=== PATIENT | male | born 1965 | race Caucasian/White ===

== ENCOUNTER 2019-02-13 17:00 | Inpatient (IN) | payer OTHER ==
--- NOTE | 2019-02-13 17:30 | ER Document Report ---
ED Medical Screen (RME) - General Chief Complaint: Laceration Stated Complaint: HEAD INJURY Time Seen by Provider: 02/13/19 17:18 Primary Care Provider: ALMA DELIA TERRELL MD [Primary Care Provider] - Follow up as needed Notes: 53-year-old male patient comes emergency room after a syncopal episode where he fell and struck his forehead. He has a laceration above the eyebrow on the right forehead. He did go to his doctor about 2 PM today and got an allergy shot. He states he remembers feeling nauseous and feeling like his heart was fluttering, he then put his head down on his desk, and he woke up on the floor with the injury. He does report having similar episode of heart fluttering and nauseous feeling about 2 weeks ago, but then it went away. I have greeted and performed a rapid initial assessment of this patient. A comprehensive ED assessment and evaluation of the patient, analysis of test results and completion of the medical decision making process will be conducted by additional ED providers. - Related Data Allergies/Adverse Reactions: No Known Allergies Allergy (Unverified 02/13/19 17:02) Past Medical History - Social History Chew tobacco use (# tins/day): No Drug Abuse: None - Past Medical History Cardiac Medical History: Reports: Hx Hypertension Renal/ Medical History: Denies: Hx Peritoneal Dialysis Past Surgical History: Reports: Hx Orthopedic Surgery - back and jaw Physical Exam - Vital signs Vitals: Temp Pulse Resp BP Pulse Ox 97.9 F 87 16 165/82 H 100 02/13/19 17:06 02/13/19 17:06 02/13/19 17:06 02/13/19 17:06 02/13/19 17:06 Course - Vital Signs Vital signs: Temp Pulse Resp BP Pulse Ox 97.9 F 87 16 165/82 H 100 02/13/19 17:06 02/13/19 17:06 02/13/19 17:06 02/13/19 17:06 02/13/19 17:06 Doctor's Discharge - Discharge Referrals: ALMA DELIA TERRELL MD [Primary Care Provider] - Follow up as needed
[2019-02-13] MEDS ORDERED: DIPH/PERTUSS(ACELL)/TETANUS VAC/PF 0.5 ML SYR (>=10YO) IM ONE (17:35)
[2019-02-13 18:06] LABS: ABSOLUTE EOSINOPHILS # (AUTO) 0.1 10^3/uL (0.0-0.6); ABSOLUTE LYMPHOCYTES (AUTO) 1.4 10^3/uL (0.5-4.7); ABSOLUTE MONOCYTES (AUTO) 0.5 10^3/uL (0.1-1.4); ABSOLUTE NEUT (AUTO) 6.1 10^3/uL (1.7-8.2); BASOPHILS % (AUTO) 0.6 % (0-2); EOSINOPHILS % (AUTO) 1.3 % (0-6); HEMATOCRIT 43.8 % (37.9-51.0); HEMOGLOBIN 15.2 g/dL (13.5-17.0); LYMPHOCYTES % (AUTO) 16.8 % (13-45); MEAN CORPUSCULAR HGB CONC 34.7 g/dL (32.0-36.0); MEAN CORPUSCULAR VOLUME 86 fl (80-97); MONOCYTES % (AUTO) 6.1 % (3-13); PLATELET COUNT 320 10^3/uL (150-450); RED BLOOD COUNT 5.06 10^6/uL (4.35-5.55); RED CELL DISTRIBUTION WIDTH 13.7 % (11.5-14.0); SEGMENTED NEUTROPHILS % (AUTO) 75.2 % (42-78); TOTAL CELLS COUNTED % (AUTO) 100 %; WHITE BLOOD COUNT 8.2 10^3/uL (4.0-10.5)
[2019-02-13 18:26] LABS: ALANINE AMINOTRANSFERASE 76 U/L (21-72); ALBUMIN 4.9 g/dL (3.5-5.0); ALKALINE PHOSPHATASE 88 U/L (38-126); ANION GAP 11 (5-19); ASPARTATE AMINO TRANSFERASE 47 U/L (17-59); BILIRUBIN,DIRECT 0.3 mg/dL (0.0-0.4); BILIRUBIN,TOTAL 1.2 mg/dL (0.2-1.3); BLOOD UREA NITROGEN 20 mg/dL (7-20); CALCIUM 10.2 mg/dL (8.4-10.2); CARBON DIOXIDE 29 mmol/L (22-30); CHLORIDE 100 mmol/L (98-107); CREATINE KINASE 83 U/L (55-170); GLUCOSE 112 mg/dL (75-110); POTASSIUM 4.3 mmol/L (3.6-5.0); TOTAL PROTEIN 8.4 g/dL (6.3-8.2)
--- NOTE | 2019-02-13 18:32 | RADIOLOGY REPORT (SQ) ---
EXAM DESCRIPTION: CT HEAD WITHOUT COMPLETED DATE/TIME: 02/13/2019 6:26 pm REASON FOR STUDY: Syncope, fall, hit head COMPARISON: None. TECHNIQUE: Axial images acquired through the brain without intravenous contrast. Images reviewed wi th bone, brain and subdural windows. Additional sagittal and coronal reconstructions were generated. Images stored on PACS. All CT scanners at this facility use dose modulation, iterative reconstruction, and/or weight based d osing when appropriate to reduce radiation dose to as low as reasonably achievable (ALARA). [facility]: Dose Right [facility]: CareDose [facility]: Dose Right [facility]: Teradose 4D [facility]: [employer] Technologies RADIATION DOSE: CT Rad equipment meets quality standard of care and radiation dose reduction techniq ues were employed. CTDIvol: 53.2 mGy. DLP: 1044 mGy-cm. mGy. LIMITATIONS: None. FINDINGS: VENTRICLES: Normal size and contour. CEREBRUM: No masses. No hemorrhage. No midline shift. No evidence for acute infarction. Normal gra y/white matter differentiation. No areas of low density in the white matter. CEREBELLUM: No masses. No hemorrhage. No alteration of density. No evidence for acute infarction. EXTRAAXIAL SPACES: No fluid collections. No masses. ORBITS AND GLOBE: No intra- or extraconal masses. Normal contour of globe without masses. CALVARIUM: No fracture. PARANASAL SINUSES: Small air-fluid level in the right maxillary sinus. SOFT TISSUES: No mass or hematoma. OTHER: No other significant finding. IMPRESSION: 1. No acute intracranial pathology. 2. Small air-fluid level in the right maxillary sinus. Correlate for evidence of acute trauma or al ternately sinusitis. EVIDENCE OF ACUTE STROKE: NO. COMMENT: Quality ID # [id number]: Final reports with documentation of one or more dose reduction techniques (e.g., Automated exposure control, adjustment of the mA and/or kV according to patient size, use of iterative reconstruction technique) TECHNICAL DOCUMENTATION: JOB ID: [id number] [employer]- All Rights Reserved Reading location - IP/workstation name: [email or web address]
--- NOTE | 2019-02-13 18:36 | RADIOLOGY REPORT (SQ) ---
EXAM DESCRIPTION: CHEST 2 VIEWS COMPLETED DATE/TIME: 02/13/2019 6:26 pm REASON FOR STUDY: syncope COMPARISON: None. EXAM PARAMETERS: NUMBER OF VIEWS: two views TECHNIQUE: Digital Frontal and Lateral radiographic views of the chest acquired. RADIATION DOSE: NA LIMITATIONS: none FINDINGS: LUNGS AND PLEURA: No opacities, masses or pneumothorax. No pleural effusion. MEDIASTINUM AND HILAR STRUCTURES: No masses or contour abnormalities. HEART AND VASCULAR STRUCTURES: Cardiomegaly. BONES: No acute findings. HARDWARE: None in the chest. OTHER: No other significant finding. IMPRESSION: Cardiomegaly without acute abnormality of the lungs. TECHNICAL DOCUMENTATION: JOB ID: [id number] [email or web address]- All Rights Reserved Reading location - IP/workstation name: [email or web address]
[2019-02-13 18:38] LABS: CREATINE KINASE MB 0.61 ng/mL (<4.55); TROPONIN I < 0.012 ng/mL
[2019-02-13] MEDS ORDERED: LIDOCAINE 1%/EPINEPHRINE INJ 20 ML VIAL INJ ONE (18:44)
[2019-02-13 18:57] LABS: FREE T3 5.15 pg/mL (2.77-5.27); FREE T4 (FREE THYROXINE) 1.1 ng/dL (0.78-2.19)
[2019-02-13 19:08] LABS: APPEARANCE,URINE CLEAR; BILIRUBIN,URINE NEGATIVE (NEGATIVE); COLOR,URINE YELLOW; GLUCOSE, URINE NEGATIVE (NEGATIVE); KETONES,URINE 20 mg/dL (NEGATIVE); LEUKOCYTE ESTERASE,URINE NEGATIVE (NEGATIVE); NITRITE,URINE NEGATIVE (NEGATIVE); PROTEIN,URINE NEGATIVE (NEGATIVE); URINE SPECIFIC GRAVITY 1.017; UROBILINOGEN,URINE NEGATIVE mg/dL (<2.0)
[2019-02-13 19:10] LABS: THYROID STIMULATING HORMONE 3.88 uIU/mL (0.47-4.68)
--- NOTE | 2019-02-13 19:49 | ER Document Report ---
ED Syncope and Near Syncope - General Chief Complaint: Laceration Stated Complaint: HEAD INJURY Time Seen by Provider: 02/13/19 17:18 Primary Care Provider: ALMA DELIA TERRELL MD [Primary Care Provider] - Follow up as needed Mode of Arrival: Ambulatory Information source: Patient Notes: Patient states that about 2 weeks ago he had an episode in which he felt hot and sweaty with nausea and the symptoms resolved. Patient states that today around 415 he got lightheaded felt a fluttering in his chest was nauseated and then woke up on the floor with a laceration. Patient presently denies any complaints at this time. Patient denies any lightheaded sensation or help rotations in his chest. Patient denies any history other than hypertension. - HPI Patient complains to provider of: Fainting Episode witnessed (by whom): No Symptoms prior to episode: Lightheaded, Nausea/vomiting, Palpitations. No: Chest pain Position/Activity at time of episode: Sitting Quality of pain: No pain Pain Level: Denies Context: Lost consciousness. denies: Recent travel Injury location: Head Current symptoms: Lightheaded, Nausea. denies: Arm pain, Chest pain, Neck pain, Vomiting Similar symptoms previously: Yes Recently seen / treated by doctor: Yes - Saw her primary doctor earlier today and received a cortisone injection - Related Data Allergies/Adverse Reactions: No Known Allergies Allergy (Verified 02/13/19 18:14) Past Medical History - General Information source: Patient - Social History Smoking Status: Never Smoker Chew tobacco use (# tins/day): No Frequency of alcohol use: None Drug Abuse: None Occupation: Educator Lives with: Family Family History: Reviewed & Not Pertinent Patient has suicidal ideation: No Patient has homicidal ideation: No - Past Medical History Cardiac Medical History: Reports: Hx Hypertension Renal/ Medical History: Denies: Hx Peritoneal Dialysis Past Surgical History: Reports: Hx Orthopedic Surgery - back and jaw Review of Systems - Review of Systems Constitutional: No symptoms reported. denies: Fever, Recent illness EENT: No symptoms reported Cardiovascular: Palpitations, Syncope, Lightheaded. denies: Chest pain Respiratory: No symptoms reported. denies: Cough, Short of breath Gastrointestinal: Nausea. denies: Vomiting Genitourinary: No symptoms reported Male Genitourinary: No symptoms reported Musculoskeletal: No symptoms reported. denies: Back pain Skin: Other - Laceration to brow Hematologic/Lymphatic: No symptoms reported Neurological/Psychological: No symptoms reported. denies: Headaches Physical Exam - Vital signs Vitals: Temp Pulse Resp BP Pulse Ox 97.9 F 87 16 165/82 H 100 02/13/19 17:06 02/13/19 17:06 02/13/19 17:06 02/13/19 17:06 02/13/19 17:06 - General General appearance: Appears well, Alert In distress: None - HEENT Head: Tenderness - Laceration to the right brow area. No: Abrasions, [place]'s eyes Eyes: Normal Extraocular movements intact: Yes Eyelashes: Normal Pupils: PERRL Ears: Normal External canal: Normal Nasal: Normal Mouth/Lips: Normal Pharynx: Normal. No: Erythema, Exudate Neck: Normal, Lymphadenopathy, Supple - Respiratory Respiratory status: No respiratory distress Chest status: Nontender Breath sounds: Normal Chest palpation: Normal - Cardiovascular Rhythm: Regular Heart sounds: S1 appreciated, S2 appreciated Murmur: No - Abdominal Inspection: Normal Distension: No distension Bowel sounds: Normal Tenderness: Nontender Organomegaly: No organomegaly - Back Back: Normal, Nontender. No: CVA tenderness - Extremities General upper extremity: Normal inspection, Normal ROM General lower extremity: Normal inspection, Normal ROM. No: Edema - Neurological Neuro grossly intact: Yes Cognition: Normal [place] Coma Scale Eye Opening: Spontaneous [place] Coma Scale Verbal: Oriented [place] Coma Scale Motor: Obeys Commands [place] Coma Scale Total: 15 - Psychological Associated symptoms: Normal affect, Normal mood - Skin Skin Temperature: Warm Skin Moisture: Dry Skin irregularity: Laceration - 2 cm laceration to the right brow area Course - Re-evaluation Re-evalutation: 02/13/19 19:59 Patient denies any chest pain symptoms or palpitations symptoms at this time. Patient's heart rate in a sinus rhythm at this time. Consulted with Dr. Gibbons who does recommend consultation with hospitalist for admission for further evaluation. Patient denies any headache, neck or back tenderness at this time. 02/13/19 20:[address] Castro who agrees to accept patient for admission to the IMCU unit. - Vital Signs Vital signs: Temp Pulse Resp BP Pulse Ox 97.9 F 87 20 159/94 H 95 02/13/19 17:06 02/13/19 17:06 02/13/19 19:01 02/13/19 19:01 02/13/19 19:01 - Laboratory Result Diagrams: 02/13/19 17:48 02/13/19 17:48 Laboratory results interpreted by me: 02/13/19 02/13/19 17:48 17:48 Glucose 112 H ALT 76 H Total Protein 8.4 H Urine Ketones 20 H Urine Ascorbic Acid 40 H 02/13/19 19:48 Labs- Entire Visit 02/13/19 02/13/19 02/13/19 17:48 17:48 17:48 WBC 8.2 RBC 5.06 Hgb 15.2 Hct 43.8 MCV 86 MCH 30.0 MCHC 34.7 RDW 13.7 Plt Count 320 Seg Neutrophils % 75.2 Lymphocytes % 16.8 Monocytes % 6.1 Eosinophils % 1.3 Basophils % 0.6 Absolute Neutrophils 6.1 Absolute Lymphocytes 1.4 Absolute Monocytes 0.5 Absolute Eosinophils 0.1 Absolute Basophils 0.0 Sodium 140.0 Potassium 4.3 Chloride 100 Carbon Dioxide 29 Anion Gap 11 BUN 20 Creatinine 0.87 Est GFR ( Amer) > 60 Est GFR (Non-Af Amer) > 60 Glucose 112 H Calcium 10.2 Magnesium Total Bilirubin 1.2 Direct Bilirubin 0.3 Neonat Total Bilirubin Not Reportable Neonat Direct Bilirubin Not Reportable Neonat Indirect Bili Not Reportable AST 47 ALT 76 H Alkaline Phosphatase 88 Creatine Kinase 83 CK-MB (CK-2) 0.61 Troponin I < 0.012 Total Protein 8.4 H Albumin 4.9 TSH Free T4 Free T3 pg/mL Urine Color Urine Appearance Urine pH Ur Specific [place] Urine Protein Urine Glucose (UA) Urine Ketones Urine Blood Urine Nitrite Urine Bilirubin Urine Urobilinogen Ur Leukocyte Esterase Urine RBC (Auto) Squamous Epi Cells Auto Urine Mucus (Auto) Urine Ascorbic Acid 02/13/19 02/13/19 02/13/19 17:48 17:48 17:48 WBC RBC Hgb Hct MCV MCH MCHC RDW Plt Count Seg Neutrophils % Lymphocytes % Monocytes % Eosinophils % Basophils % Absolute Neutrophils Absolute Lymphocytes Absolute Monocytes Absolute Eosinophils Absolute Basophils Sodium Potassium Chloride Carbon Dioxide Anion Gap BUN Creatinine Est GFR ( Amer) Est GFR (Non-Af Amer) Glucose Calcium Magnesium 2.1 Total Bilirubin Direct Bilirubin Neonat Total Bilirubin Neonat Direct Bilirubin Neonat Indirect Bili AST ALT Alkaline Phosphatase Creatine Kinase CK-MB (CK-2) Troponin I Total Protein Albumin TSH 3.88 Free T4 1.10 Free T3 pg/mL 5.15 Urine Color YELLOW Urine Appearance CLEAR Urine pH 6.0 Ur Specific [place] 1.017 Urine Protein NEGATIVE Urine Glucose (UA) NEGATIVE Urine Ketones 20 H Urine Blood NEGATIVE Urine Nitrite NEGATIVE Urine Bilirubin NEGATIVE Urine Urobilinogen NEGATIVE Ur Leukocyte Esterase NEGATIVE Urine RBC (Auto) 4 Squamous Epi Cells Auto <1 Urine Mucus (Auto) RARE Urine Ascorbic Acid 40 H - Diagnostic Test Radiology reviewed: Reports reviewed - EKG Interpretation by Me Rhythm: A.Fib - With some appearance of flutter waves in lead I and II Additional EKG results interpreted by me: 02/13/19 20:09 Repeat EKG sinus rhythm, no ST wave elevation, QTc 416 Procedures - Laceration/Wound Repair Right Face Wound length (cm): 2 Wound's Depth, Shape: Linear Laceration pre-procedure: Shur-Clens applied Anesthetic type: 1% Lidocaine w/epi Wound explored: Clean, No foreign body removed Wound Repaired With: Sutures Suture Size/Type: 6:0, Nylon Number of Sutures: 5 Layer Closure?: No Post-procedure NV exam normal: Yes Complications: No Adult Head Front/Back picture: 1 - 2 cm lac Discharge - Discharge Clinical Impression: Syncope Qualifiers: Syncope type: unspecified Qualified Code(s): R55 - Syncope and collapse Facial laceration Qualifiers: Encounter type: initial encounter Qualified Code(s): S01.81XA - Laceration without foreign body of other part of head, initial encounter Condition: Stable Disposition: ADMITTED INPATIENT Admitting Provider: Hospitalist Unit Admitted: IMCU Referrals: ALMA DELIA TERRELL MD [Primary Care Provider] - Follow up as needed
[2019-02-13] MEDS ORDERED: MAG HYDROX/AL HYDROX/SIMETH SUSP 30 ML UDCUP PO PRN (21:07)
[2019-02-13] MEDS ORDERED: TEMAZEPAM 15 MG CAPSULE PO PRN (21:07)
[2019-02-13] MEDS ORDERED: ONDANSETRON HCL INJ/PF 4 MG/2 ML SDV IV PRN (21:07)
[2019-02-13] MEDS ORDERED: MAGNESIUM HYDROXIDE SUSP 30 ML UDCUP PO PRN (21:07)
[2019-02-13] MEDS ORDERED: ACETAMINOPHEN 325 MG TABLET PO PRN (21:15)
[2019-02-13] MEDS ORDERED: NALBUPHINE HCL INJ 10 MG/1 ML AMPULE IV PRN (21:15)
--- NOTE | 2019-02-13 22:56 | RADIOLOGY REPORT (SQ) ---
EXAM DESCRIPTION: MR BRAIN ANGIOGRAPHY WITHOUT IV CONTRAST COMPLETED DATE/TME: 02/13/2019 00:00 CLINICAL HISTORY: 53 years, Male, Syncopal epsiode COMPARISON: CT brain 02/13/2019 TECHNIQUE: 364 Images stored on PACS. LIMITATIONS: None. FINDINGS: The vertebral basilar system is unremarkable. Negative for basilar tip aneurysm. The petrous and remaining intracranial portions of the internal carotid arteries are widely patent. The [place] is intact and unremarkable. No MRA evidence for focal stenosis, vascular encasement, or displacement. No MR evidence for aneurysm or arteriovenous malformation. IMPRESSION: Unremarkable MRA brain copyright 2010 [employer]- All Rights Reserved
--- NOTE | 2019-02-13 23:01 | RADIOLOGY REPORT (SQ) ---
EXAM DESCRIPTION: MR BRAIN WITHOUT IV CONTRAST COMPLETED DATE/TME: 02/13/2019 00:00 CLINICAL HISTORY: 53 years, Male, Syncopal epsiode COMPARISON: CT from today's date TECHNIQUE: 283 Images stored on PACS. LIMITATIONS: None. FINDINGS: Sagittal midline anatomic structures show an unremarkable appearance to the pituitary and suprasellar regions. The globes are intact. The costal thickening of the ethmoid air cells. Air-fluid level with polyps of the right maxillary sinus. Normal flow void in visualized intracranial vessels. The visualized cranial nerve complex these are unremarkable. There is no intra or extra-axial hemorrhage. Diffusion-weighted images are normal without evidence for acute infarct. No evidence for mass or midline shift. The dum[place]-white matter differentiation is preserved. Ventricles are symmetric. IMPRESSION: Negative for acute intracranial abnormality. Right maxillary sinusitis copyright 2010 [employer]- All Rights Reserved
[2019-02-13 23:04] LABS: CREATINE KINASE MB 0.5 ng/mL (<4.55); TROPONIN I 0.013 ng/mL
[2019-02-13] MEDS: HEPARIN SOD (PORCINE) 5,000 UNIT/ML 1 ML SYRINGE SUBCUT SCH (23:12)
[2019-02-13] MEDS: FAMOTIDINE 20 MG TABLET PO SCH (23:12)
--- NOTE | 2019-02-13 23:18 | EKG REPORT ---
SEVERITY:- BORDERLINE ECG - SINUS RHYTHM PROBABLE LEFT ATRIAL ABNORMALITY : Confirmed by: Felix Cornelius 13-Feb-2019 23:18:04
--- NOTE | 2019-02-13 23:19 | EKG REPORT ---
SEVERITY:- ABNORMAL ECG - SINUS RHYTHM, BASELINE ARTIFACTS PREVENTS ACCURATE INTERP. REC REPET EKG : Confirmed by: Felix Cornleius 13-Feb-2019 23:19:11
--- NOTE | 2019-02-14 01:47 | PDOC H&P ---
History of Present Illness Admission Date/PCP: 02/13/19 20:24 ALMA DELIA TERRELL Patient complains of: Syncopal episode History of Present Illness: GARRETT AGUIAR is a 53 year old male who presented to the emergency room with an acute episode of syncope. 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 He remembers the events just prior to the episode of unconsciousness and also angelika mbers the events immediately following the period of unconsciousness when he woke up noticing blood on the floor in front of his face. He denies other accompanying signs or symptoms and rates his syncopal episode as severe. He admits that he had a single similar less severe prior episode approximately 2 weeks ago but did not have syncope at that time. He has not identified any aggravating or ameliorating factors for his syncopal episodes. In the emergency room he was found to have a right periorbital contusion with laceration which was repaired. His CAT scan was negative for intracranial injury or hemorrhage. His initial cardiac workup showed negative cardiac enzymes and an EKG which s howed no evidence of cardiac ischemia or injury. He was subsequently admitted to the hospital for further evaluation and treatment. Past Medical History Cardiac Medical History: Reports: Hypertension Denies: Atrial Fibrillation, Coronary Artery Disease, Hyperlipidema Pulmonary Medical History: Denies: Asthma, Chronic Obstructive Pulmonary Disease (COPD) EENT Medical History: Denies: Cataracts, Nose - Nasal polyps Neurological Medical History: Denies: Hemorrhagic CVA, Ischemic CVA, Multiple Sclerosis, Seizures Endocrine Medical History: Denies: Diabetes Mellitus Type 1, Diabetes Mellitus Type 2, Hyperthyroidism, Hypothyroidism Renal/ Medical History: Denies: Chronic Kidney Disease, Nephrolithiasis Malignancy Medical History: Reports: None GI Medical History: Denies: Cirrhosis, Hepatitis Musculoskeltal Medical History: Denies: Arthritis, Gout Skin Medical History: Denies: Eczema, Psoriasis Psychiatric Medical History: Denies: Alcohol Dependency, Substance Abuse, Tobacco Dependency Traumatic Medical History: Reports: None Hematology: Denies: Anemia, Bleeding Tendencies Infectious Medical History: Reports: None Past Surgical History Past Surgical History: Reports: Orthopedic Surgery - back and jaw Social History Information Source: Patient Lives with: Family Smoking Status: Never Smoker Frequency of Alcohol Use: Rare Hx Recreational Drug Use: No Drugs: None Hx Prescription Drug Abuse: No - Advance Directive Resuscitation Status: Full Code Surrogate healthcare decision maker:: Spouse Family History Family History: Hypertension, Malignancy. denies: CAD, DM Parental Family History Reviewed: Yes Children Family History Reviewed: No Sibling(s) Family History Reviewed.: Yes Medication/Allergy Home Medications: Amlodipine Besylate [Norvasc 5 mg Tablet] 5 mg PO DAILY 02/13/19 Fluticasone Furoate [Arnuity Ellipta] 50 mcg NASL DAILY 02/13/19 Furosemide [Lasix 40 mg Tablet] 40 mg PO DAILY 02/13/19 Ramipril [Altace 10 mg Capsule] 10 mg PO DAILY 02/13/19 Allergies/Adverse Reactions: No Known Allergies Allergy (Verified 02/13/19 18:14) Review of Systems Constitutional: PRESENT: as per HPI, headache(s) - Right frontal headache since injury, other - Diaphoresis. ABSENT: chills, fever(s) Eyes: ABSENT: visual disturbances, other - Ocular pain Ears: ABSENT: hearing changes, other - Ear pain Nose, Mouth, and Throat: ABSENT: mouth pain, sore throat Cardiovascular: PRESENT: as per HPI, palpitations, other - Syncopal episode. ABSENT: chest pain, dyspnea on exertion, edema, orthropnea Respiratory: ABSENT: cough, dyspnea Gastrointestinal: PRESENT: as per HPI, nausea. ABSENT: abdominal pain, constipation, diarrhea, vomiting Genitourinary: ABSENT: dysuria, hematuria Musculoskeletal: PRESENT: back pain - Mild chronic back pain since surgery. ABSENT: joint swelling, muscle weakness Integumentary: ABSENT: pruritus, rash Neurological: ABSENT: confusion, convulsions, focal weakness, memory loss Psychiatric: ABSENT: anxiety, depression Endocrine: ABSENT: cold intolerance, heat intolerance Hematologic/Lymphatic: ABSENT: easy bleeding, easy bruising Physical Exam Vital Signs: Temp Pulse Resp BP Pulse Ox 97.9 F 87 11 L 164/97 H 96 02/13/19 17:06 02/13/19 17:06 02/13/19 20:01 02/13/19 20:01 02/13/19 20:01 Intake & Output 02/11/19 02/12/19 02/13/19 23:59 23:59 23:59 Weight 100 kg General appearance: PRESENT: no acute distress, cooperative, obese Head exam: PRESENT: atraumatic, normocephalic Eye exam: PRESENT: conjunctiva pink. ABSENT: scleral icterus Ear exam: PRESENT: normal external ear exam. ABSENT: bleeding, drainage Mouth exam: PRESENT: dry mucosa, neck supple Neck exam: ABSENT: JVD, thyromegaly, tracheal deviation Respiratory exam: PRESENT: clear to auscultation deandre, symmetrical, unlabored Cardiovascular exam: PRESENT: RRR. ABSENT: clicks, gallop, rubs Pulses: PRESENT: normal radial pulses, normal dorsalis pedis pul Vascular exam: PRESENT: normal capillary refill. ABSENT: pallor GI/Abdominal exam: PRESENT: normal bowel sounds, soft Rectal exam: PRESENT: deferred Extremities exam: ABSENT: joint swelling, pedal edema Musculoskeletal exam: PRESENT: full ROM, normal inspection Neurological exam: PRESENT: alert, awake, oriented to person, oriented to place, oriented to time, oriented to situation, CN II-XII grossly intact. ABSENT: motor sensory deficit Psychiatric exam: PRESENT: appropriate affect, normal mood Skin exam: PRESENT: dry, intact, warm. ABSENT: jaundice, rash, urticaria Results Laboratory Results: 02/13/19 17:48 02/13/19 17:48 02/13/19 02/13/19 02/13/19 17:48 17:48 17:48 WBC 8.2 RBC 5.06 Hgb 15.2 Hct 43.8 MCV 86 MCH 30.0 MCHC 34.7 RDW 13.7 Plt Count 320 Seg Neutrophils % 75.2 Lymphocytes % 16.8 Monocytes % 6.1 Eosinophils % 1.3 Basophils % 0.6 Absolute Neutrophils 6.1 Absolute Lymphocytes 1.4 Absolute Monocytes 0.5 Absolute Eosinophils 0.1 Absolute Basophils 0.0 Sodium 140.0 Potassium 4.3 Chloride 100 Carbon Dioxide 29 Anion Gap 11 BUN 20 Creatinine 0.87 Est GFR ( Amer) > 60 Est GFR (Non-Af Amer) > 60 Glucose 112 H Calcium 10.2 Magnesium 2.1 Total Bilirubin 1.2 AST 47 ALT 76 H Alkaline Phosphatase 88 Total Protein 8.4 H Albumin 4.9 TSH Free T4 Free T3 pg/mL Urine Color Urine Appearance Urine pH Ur Specific [place] Urine Protein Urine Glucose (UA) Urine Ketones Urine Blood Urine Nitrite Ur Leukocyte Esterase Urine RBC (Auto) 02/13/19 02/13/19 17:48 17:48 WBC RBC Hgb Hct MCV MCH MCHC RDW Plt Count Seg Neutrophils % Lymphocytes % Monocytes % Eosinophils % Basophils % Absolute Neutrophils Absolute Lymphocytes Absolute Monocytes Absolute Eosinophils Absolute Basophils Sodium Potassium Chloride Carbon Dioxide Anion Gap BUN Creatinine Est GFR ( Amer) Est GFR (Non-Af Amer) Glucose Calcium Magnesium Total Bilirubin AST ALT Alkaline Phosphatase Total Protein Albumin TSH 3.88 Free T4 1.10 Free T3 pg/mL 5.15 Urine Color YELLOW Urine Appearance CLEAR Urine pH 6.0 Ur Specific [place] 1.017 Urine Protein NEGATIVE Urine Glucose (UA) NEGATIVE Urine Ketones 20 H Urine Blood NEGATIVE Urine Nitrite NEGATIVE Ur Leukocyte Esterase NEGATIVE Urine RBC (Auto) 4 02/13/19 02/13/19 17:48 17:48 Creatine Kinase 83 CK-MB (CK-2) 0.61 Troponin I < 0.012 Impressions: Head CT 02/13/19 17:27 IMPRESSION: 1. No acute intracranial pathology. 2. Small air-fluid level in the right maxillary sinus. Correlate for evidence of acute trauma or alternately sinusitis. EVIDENCE OF ACUTE STROKE: NO. Chest X-Ray 02/13/19 18:16 IMPRESSION: Cardiomegaly without acute abnormality of the lungs. Assessment and Plan - Diagnosis (1) Syncope Qualifiers: Syncope type: unspecified Qualified Code(s): R55 - Syncope and collapse Is this a current diagnosis for this admission?: Yes Plan: Patient is admitted for further evaluation will be monitored closely on the telemetry bed. A cardiac consultation will be obtained with Dr. Chaudhari for further evaluation. Additionally patient will have an echocardiogram performed and a MRI of his head as well as an MRA of the head and the neck. Patient has had a broad-spectrum blood chemistry battery obtained to evaluate for thyroid disease and other metabolic causes of syncope. Serial cardiac enzymes and EKGs will be obtained to rule out myocardial infarction or injury as a source of the patient's syncope. Patient's description of his syncopal episode would certainly lend more to the explanation of vasovagal syncope however an arrhythmic etiology cannot be excluded at this point. (2) HTN (hypertension) Qualifiers: Hypertension type: essential hypertension Qualified Code(s): I10 - Essential (primary) hypertension Is this a current diagnosis for this admission?: Yes Plan: Patient will be continued on his current antihypertensive therapy initially however adjustments may be made by Dr. Chaudhari or the daytime hospitalist who will manage the patient prior to discharge. (3) Cardiomegaly Is this a current diagnosis for this admission?: Yes Plan: Patient's cardiomegaly will be evaluated with an echocardiogram. (4) Obesity (BMI 30.0-34.9) Is this a current diagnosis for this admission?: Yes Plan: Patient will be encouraged to adopt a healthy lifestyle utilizing a heart healthy diet to improve his overall life and health. (5) Facial laceration Qualifiers: Encounter type: initial encounter Qualified Code(s): S01.81XA - Laceration without foreign body of other part of head, initial encounter Is this a current diagnosis for this admission?: Yes Plan: Wound care will be delivered as recommended by the emergency room provider who repaired his laceration. The pain associated with the laceration and contusion of his right periorbital region will be treated with Nubain 10 mg IV every 3 hours as needed. Patient is going to have neuro checks performed every 4 hours. - Time Time Spent with patient: 35 or more minutes Medications reviewed and adjusted accordingly: Yes Anticipated discharge: Home - Inpatient Certification Based on my medical assessment, after consideration of the patient's comorbidities, presenting symptoms, or acuity I expect that the services needed warrant INPATIENT care.: Yes I certify that my determination is in accordance with my understanding of Medicare's requirements for reasonable and necessary INPATIENT services [42 CFR 412.3e].: Yes Medical Necessity: Need Close Monitoring Due to Risk of Patient Decompensation, Need For Continuous Telemetry Monitoring, Need for Neurological Checks, Risk of Complication if Not Cared For in Hospital
[2019-02-14 04:26] LABS: APPEARANCE,URINE CLEAR; BILIRUBIN,URINE NEGATIVE (NEGATIVE); COLOR,URINE YELLOW; GLUCOSE, URINE 150 mg/dL (NEGATIVE); KETONES,URINE TRACE mg/dL (NEGATIVE); LEUKOCYTE ESTERASE,URINE NEGATIVE (NEGATIVE); NITRITE,URINE NEGATIVE (NEGATIVE); PROTEIN,URINE NEGATIVE (NEGATIVE); URINE SPECIFIC GRAVITY 1.013; UROBILINOGEN,URINE NEGATIVE mg/dL (<2.0)
[2019-02-14 04:44] LABS: URINE AMPHETAMINES SCREEN NEGATIVE; URINE BARBITURATES SCREEN NEGATIVE; URINE BENZODIAZEPINES SCREEN NEGATIVE; URINE COCAINE SCREEN NEGATIVE; URINE MARIJUANA (THC) SCREEN NEGATIVE; URINE PHENCYCLIDINE SCREEN NEGATIVE
[2019-02-14 04:51] LABS: URINE METHADONE SCREEN NEGATIVE
[2019-02-14] MEDS: HEPARIN SOD (PORCINE) 5,000 UNIT/ML 1 ML SYRINGE SUBCUT SCH ×3 (05:24→21:34)
[2019-02-14 05:25] LABS: HEMATOCRIT 39.5 % (37.9-51.0); HEMOGLOBIN 14.1 g/dL (13.5-17.0); MEAN CORPUSCULAR HEMOGLOBIN 30.5 pg (27.0-33.4); MEAN CORPUSCULAR HGB CONC 35.6 g/dL (32.0-36.0); MEAN CORPUSCULAR VOLUME 86 fl (80-97); PLATELET COUNT 306 10^3/uL (150-450); RED BLOOD COUNT 4.61 10^6/uL (4.35-5.55); RED CELL DISTRIBUTION WIDTH 13.5 % (11.5-14.0); WHITE BLOOD COUNT 8.5 10^3/uL (4.0-10.5)
[2019-02-14 05:47] LABS: ANION GAP 10 (5-19); BLOOD UREA NITROGEN 18 mg/dL (7-20); CARBON DIOXIDE 25 mmol/L (22-30); CHLORIDE 103 mmol/L (98-107); CHOLESTEROL 166.42 mg/dL (0-200); GLUCOSE 84 mg/dL (75-110); POTASSIUM 4.5 mmol/L (3.6-5.0); SODIUM 138.3 mmol/L (137-145); TRIGLYCERIDES 172 mg/dL (<150)
[2019-02-14 05:57] LABS: DIRECT LDL 102 mg/dL (<100)
[2019-02-14 05:59] LABS: CREATINE KINASE MB 0.52 ng/mL (<4.55)
[2019-02-14 06:01] LABS: VLDL CHOLESTEROL 34.4 mg/dL (10-31)
[2019-02-14 06:04] LABS: TROPONIN I < 0.012 ng/mL
[2019-02-14 06:07] LABS: FREE T3 3.74 pg/mL (2.77-5.27); FREE T4 (FREE THYROXINE) 1.01 ng/dL (0.78-2.19)
[2019-02-14 06:22] LABS: THYROID STIMULATING HORMONE 2.18 uIU/mL (0.47-4.68)
[2019-02-14] MEDS: AMLODIPINE BESYLATE 5 MG TABLET PO SCH (09:13)
[2019-02-14] MEDS: FUROSEMIDE 40 MG TABLET PO SCH (09:14)
[2019-02-14] MEDS: RAMIPRIL 10 MG CAPSULE PO SCH (09:14)
[2019-02-14] MEDS: FAMOTIDINE 20 MG TABLET PO SCH ×2 (09:14→21:37)
[2019-02-14] MEDS: DOCUSATE SODIUM 100 MG CAPSULE PO SCH ×2 (09:16→17:07)
[2019-02-14] MEDS ORDERED: FLUTICASONE FUROATE 50 MCG NASL SCH (10:00)
[2019-02-14 11:58] LABS: CREATINE KINASE MB 0.42 ng/mL (<4.55)
[2019-02-14 12:02] LABS: TROPONIN I < 0.012 ng/mL
[2019-02-14] MEDS ORDERED: (PENDING PHARMACY ID) (Cetirizine Hcl [Zyrtec] 10 MG) PO SCH (12:15)
[2019-02-14] MEDS ORDERED: (PENDING PHARMACY ID) (Ergocalciferol (Vitamin D2) [Vitamin D2] 2,000 UNIT) PO SCH (12:15)
[2019-02-14] MEDS: MULTIVITAMIN TABLET PO SCH (14:38)
[2019-02-14] MEDS: CETIRIZINE 10 MG TABLET PO SCH (14:39)
[2019-02-14] MEDS: FLUTICASONE NASAL SPRAY 50 MCG/SPRY 120 SPRAY/16 GM NASL SCH (14:39)
--- NOTE | 2019-02-14 20:55 | PDOC PROGRESS REPORT ---
Subjective Progress Note for:: 02/14/19 Subjective:: 53 y.o. with a PMH of HTN presented to [facility] for syncope. Reportedly, he was seated at his desk when he lost consciousness. His head hit his desk, he sustained periorbital bruising. CT head normal. Brain MRI normal. ECHOcardiogram done today, awaiting results. Patient seen on rounds he is resting comfortably in bed on room air. Multiple family members/friends at bedside. The patient has no complaints at the time of assessment. S1S2. LCTA. Palpable pulses. No peripheral edema. Reason For Visit: ACUTE SYNCOPAL EPISODE Physical Exam Vital Signs: Temp Pulse Resp BP Pulse Ox 98.1 F 72 20 137/80 H 98 02/14/19 15:00 02/14/19 15:00 02/14/19 15:00 02/14/19 15:00 02/14/19 15:00 Intake & Output 02/13/19 02/14/19 02/15/19 06:59 06:59 06:59 Intake Total 696 Output Total 0 Balance 696 Weight 96 kg General appearance: PRESENT: no acute distress, well-developed, well-nourished Head exam: PRESENT: atraumatic, normocephalic Eye exam: PRESENT: conjunctiva pink, EOMI, periorbital swelling - R PERIORBITAL BRUISING, PERRLA. ABSENT: scleral icterus Ear exam: PRESENT: normal external ear exam Mouth exam: PRESENT: moist, tongue midline Neck exam: ABSENT: carotid bruit, JVD, lymphadenopathy, thyromegaly Respiratory exam: PRESENT: clear to auscultation deandre. ABSENT: rales, rhonchi, wheezes Cardiovascular exam: PRESENT: RRR. ABSENT: diastolic murmur, rubs, systolic murmur Pulses: PRESENT: normal dorsalis pedis pul Vascular exam: PRESENT: normal capillary refill GI/Abdominal exam: PRESENT: normal bowel sounds, soft. ABSENT: distended, guarding, mass, organolmegaly, rebound, tenderness Rectal exam: PRESENT: deferred Extremities exam: PRESENT: full ROM. ABSENT: calf tenderness, clubbing, pedal edema Neurological exam: PRESENT: alert, awake, oriented to person, oriented to place, oriented to time, oriented to situation. ABSENT: motor sensory deficit Psychiatric exam: PRESENT: appropriate affect, normal mood. ABSENT: homicidal ideation, suicidal ideation Skin exam: PRESENT: dry, intact, warm, other - PERIORBITAL BRUISING. ABSENT: cyanosis, rash Results Laboratory Results: 02/14/19 04:28 02/14/19 04:28 02/14/19 02/14/19 02/14/19 03:52 04:28 04:28 WBC 8.5 RBC 4.61 Hgb 14.1 Hct 39.5 MCV 86 MCH 30.5 MCHC 35.6 RDW 13.5 Plt Count 306 Sodium 138.3 Potassium 4.5 Chloride 103 Carbon Dioxide 25 Anion Gap 10 BUN 18 Creatinine 0.77 Est GFR ( Amer) > 60 Est GFR (Non-Af Amer) > 60 Glucose 84 Calcium 10.0 Magnesium 2.3 Triglycerides 172 H Cholesterol 166.42 LDL Cholesterol Direct 102 H VLDL Cholesterol 34.4 H HDL Cholesterol 42 TSH Free T4 Free T3 pg/mL Urine Color YELLOW Urine Appearance CLEAR Urine pH 7.0 Ur Specific [place] 1.013 Urine Protein NEGATIVE Urine Glucose (UA) 150 H Urine Ketones TRACE H Urine Blood NEGATIVE Urine Nitrite NEGATIVE Ur Leukocyte Esterase NEGATIVE Urine RBC (Auto) 3 02/14/19 04:28 WBC RBC Hgb Hct MCV MCH MCHC RDW Plt Count Sodium Potassium Chloride Carbon Dioxide Anion Gap BUN Creatinine Est GFR ( Amer) Est GFR (Non-Af Amer) Glucose Calcium Magnesium Triglycerides Cholesterol LDL Cholesterol Direct VLDL Cholesterol HDL Cholesterol TSH 2.18 Free T4 1.01 Free T3 pg/mL 3.74 Urine Color Urine Appearance Urine pH Ur Specific [place] Urine Protein Urine Glucose (UA) Urine Ketones Urine Blood Urine Nitrite Ur Leukocyte Esterase Urine RBC (Auto) 02/13/19 02/13/19 02/13/19 17:48 17:48 22:20 Creatine Kinase 83 78 CK-MB (CK-2) 0.61 Troponin I < 0.012 NT-Pro-B Natriuret Pep 02/13/19 02/14/19 02/14/19 22:20 04:28 04:28 Creatine Kinase 99 CK-MB (CK-2) 0.50 0.52 Troponin I 0.013 < 0.012 NT-Pro-B Natriuret Pep 02/14/19 02/14/19 02/14/19 04:28 10:57 10:57 Creatine Kinase 114 CK-MB (CK-2) 0.42 Troponin I < 0.012 NT-Pro-B Natriuret Pep 27 Impressions: Brain MRI with MRA 02/13/19 00:00 IMPRESSION: Unremarkable MRA brain copyright 2010 [employer]- All Rights Reserved Head MRI 02/13/19 00:00 IMPRESSION: Negative for acute intracranial abnormality. Right maxillary sinusitis copyright 2010 [employer]- All Rights Reserved Head CT 02/13/19 17:27 IMPRESSION: 1. No acute intracranial pathology. 2. Small air-fluid level in the right maxillary sinus. Correlate for evidence of acute trauma or alternately sinusitis. EVIDENCE OF ACUTE STROKE: NO. Chest X-Ray 02/13/19 18:16 IMPRESSION: Cardiomegaly without acute abnormality of the lungs. Status: Imported from PACS Assessment and Plan - Diagnosis (1) Syncope Qualifiers: Syncope type: unspecified Qualified Code(s): R55 - Syncope and collapse Is this a current diagnosis for this admission?: Yes Plan: +LOC while at work Head CT normal Brain MRI normal UTOX negative CBC/chemistry normal ECHOcardiogram complete, awaiting results Serial cardiac enzymes normal, no longer trending Cardiology consulted, appreciate recommendations The patient was seated at his desk when this event happened, arrhythmia is highly suspected, possibly vasovagal but less likely (2) Cardiomegaly Is this a current diagnosis for this admission?: Yes Plan: Cardiomegaly seen on CXR Evaluation by ECHOcardiogram Awaiting results (3) HTN (hypertension) Qualifiers: Hypertension type: essential hypertension Qualified Code(s): I10 - Essential (primary) hypertension Is this a current diagnosis for this admission?: Yes Plan: PMH HTN Continue home dose amlodipine and lasix BP currently well controlled - Time Time Spent with patient: 15-24 minutes Medications reviewed and adjusted accordingly: Yes Anticipated discharge: Home Within: within 24 hours - Inpatient Certification Based on my medical assessment, after consideration of the patient's comorb idities, presenting symptoms, or acuity I expect that the services needed warrant INPATIENT care.: Yes I certify that my determination is in accordance with my understanding of Medicare's requirements for reasonable and necessary INPATIENT services [42 CFR 412.3e].: Yes Medical Necessity: Risk of Complication if Not Cared For in Hospital - Plan Summary Plan Summary: CONTINUE CLOSE MONITORING ON TELEMETRY FOR ARRYTHMIA. ECHOCARDIOGRAM RESULTS PENDING. LIKELY D/C HOME TOMORROW MORNING
--- NOTE | 2019-02-14 21:04 | XCELERA REPORT ---
[address] [address] Transthoracic Echocardiogram Report Name: GARRETT AGUIAR Age: 53 yrs Gender: Male : 1965 Patient Status: Inpatient Patient Location: [address] [place], [place] [address]A Study Date: 02/14/2019 09:20 AM Height: 70 in Weight: 220 lb BSA: 2.2 m2 Procedure: A two-dimensional transthoracic echocardiogram with color flow Doppler was performed. Study Quality: Fair. Reason For Study: Syncopal episode History: SYNCOPE. Ordering Physician: FERNANDA MILLIGAN Performed By: Dinorah Peñaloza Interpretation Summary The left ventricle is normal in size. There is normal left ventricular wall thickness. LV EF is > than 65% Doppler measurements suggest normal left ventricular diastolic function : By tissue doppler The left ventricular wall motion is normal. There is no thrombus. The right ventricle is normal in size and function. The right atrium is normal. The left atrial size is normal. The interatrial septum is intact with no evidence for an atrial septal defect. There is no Doppler evidence for an interatrial shunt There is no evidence of mitral valve prolapse. There is no vegetation seen on the mitral valve. There is no mitral valve stenosis. There is a trace amount of mitral regurgitation The aortic valve is trileaflet. The aortic valve opens well. There is no aortic valvular vegetation. There is no aortic valve stenosis There is no LVOT obstruction. No aortic regurgitation is present. There is no tricuspid stenosis. There is a trace amount of tricuspid regurgitation Unable to calculate RVSP due lack of TR jet. There is no pulmonic valvular stenosis. There is a trace amount of pulmonic regurgitation The aortic root is normal size. The inferior vena cava appeared normal and decreased > 50% with respiration (RAP 5-10 mmHg) There is no pericardial effusion. MMode/2D Measurements & Calculations RVDd: 3.2 cm LVIDd: 5.2 cm FS: 39.1 % Ao root diam: 3.3 cm IVSd: 0.97 cm LVIDs: 3.2 cm EDV(Teich): LVPWd: 1.0 cm 131.2 ml Ao root area: ESV(Teich): 8.4 cm2 40.4 ml EF(Teich): 69.2 % EDV(MOD-sp4): SV(MOD-sp4): 149.5 ml 109.1 ml ESV(MOD-sp4): 40.4 ml EF(MOD-sp4): 73.0 % Doppler Measurements & Calculations MV E max duc: MV dec slope: Ao V2 max: LV V1 max P.9 cm/sec 163.0 cm/sec 7.4 mmHg MV A max duc: 651.6 cm/sec2 Ao max PG: LV V1 max: 88.7 cm/sec MV dec time: 0.14 sec 10.6 mmHg 135.7 cm/sec MV E/A: 1.0 PA V2 max: PI end-d duc: 79.5 cm/sec 86.8 cm/sec PA max P.5 mmHg Left Ventricle The left ventricle is normal in size. There is normal left ventricular wall thickness. The left ventricular ejection fraction is within normal limits. LV EF is > than 65%. Doppler measurements suggest normal left ventricular diastolic function. : By tissue doppler. The left ventricular wall motion is normal. There is no thrombus. Right Ventricle The right ventricle is normal in size and function. Atria The right atrium is normal. The left atrial size is normal. The interatrial septum is intact with no evidence for an atrial septal defect. There is no Doppler evidence for an interatrial shunt. Mitral Valve There is no evidence of mitral valve prolapse. There is no vegetation seen on the mitral valve. There is no mitral valve stenosis. There is a trace amount of mitral regurgitation. Aortic Valve The aortic valve is trileaflet. The aortic valve opens well. There is no aortic valvular vegetation. There is no aortic valve stenosis. There is no LVOT obstruction. No aortic regurgitation is present. Tricuspid Valve There is no tricuspid stenosis. There is a trace amount of tricuspid regurgitation. Unable to calculate RVSP due lack of TR jet. Pulmonic Valve There is no pulmonic valvular stenosis. There is a trace amount of pulmonic regurgitation. Great Vessels The aortic root is normal size. The inferior vena cava appeared normal and decreased > 50% with respiration (RAP 5-10 mmHg). Effusions There is no pericardial effusion. : FERNANDA MILLIGAN > Trice Chaudhari
--- NOTE | 2019-02-14 22:42 | PDOC CONSULTATION ---
Consultation-Blank Consultation: CARDIOLOGY CONSULTATION by Dr. Trice Chaudhari on 02/14/2019. Patient seen initially at 8:00 in the morning, and subsequently the patient was seen at 7:30 PM. Formal consult rendered at 7:30 PM. REASON FOR CONSULTATION: Syncope. HISTORY PRESENT ILLNESS: Patient is a pleasant 53-year-old male,d with a history of hypertension admitted after a syncopal episode. 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 He is felt a sudden sensation of heat all over his body a fluttering sensation in the chest and diaphoresis and had a brief syncopal episode lasting about 30-60 seconds. He found himself on the floor with contusion to his right periorbital and right side of head contusion. The patient denied any chest pain or discomfort prior to or after the episode. The patient states that when he regained consciousness he was not confused and there was no description suggestive of postictal episode. There was no tongue biting. There is no fecal or urinary incontinence. The patient states that about 2 weeks ago he had a similar episode of diaphoresis a little fluttering in his chest and a sensation of heat all over his body and felt very dizzy, but had no syncopal episode. He denies any other associated symptoms or chest pain shortness of breath prior to or after the syncopal episode. The patient at present denies any chest pain discomfort, or shortness of breath. There is no PND orthopnea palpitations. There is no arrhythmias seen on the monitor. The patient's CT scan of the head is negative, and the patient EKG is probably normal since there is some artifact there. The patient subsequent EKG is within normal limits. His cardiac enzymes are negative for an acute coronary event. No recent cystoscopy symptoms suggestive of a viral illness. PAST MEDICAL HISTORY: He has a history of hypertension which is well controlled. There is no history of coronary artery disease, VT or anginal symptoms. No history of congestive heart failure. No history of prior palpitations or cardiac arrhythmia. No history of congestive heart failure. No history of palpitations, PND orthopnea. There is no history of sudden . No history of diabetes mellitus or thyroid disease. No history of chronic kidney disease. No history of asthma or COPD. No history of pulmonary embolism. No history of sleep apnea. There is no history of TIA CVA. There is no history of congenital heart disease. PAST SURGICAL HISTORY: History of back surgery and jaw surgery. The patient states he has no chronic back pain, and can exercise on the treadmill. ALLERGIES: No known allergies. FAMILY HISTORY: History of hypertension malignancy in the family. No history of coronary artery disease or diabetes mellitus. SOCIAL HISTORY: The patient does not smoke. There is no history of EtOH abuse. DISPOSITION: The patient is a full code. His is his surrogate healthcare decision maker REVIEW OF SYSTEMS: CONSTITUTIONAL: Denies any fever chills or rigors. Denies any generalized fatigue or weakness. HEAD: The patient did have a periorbital contusion. There is no acute intracranial. Pathology by CT scan of the head and by MRI. He denies any dizziness. EYES: No history of amblyopia diplopia. No history of amaurosis fugax. EARS: No history of tinnitus. No history of hearing loss. No history of recurrent ear infections. No vertigo. NOSE: No history of hayfever. No history of nosebleeds. No history of nasal polyps. MOUTH: No history of altered taste sensation. No ulcers in the mouth. No bleeding from the gums. THROAT: No history of odynophagia or dysphagia. No history of recurrent sore throats. SKIN: No history of pruritus. No history of yellowish discoloration of the skin. No history of psoriasis or skin cancer or eczema. NECK: No history of neck pain. No history of swelling in the neck. RAZIA NGS: No history of cough or wheezing. No history of asthma or COPD. No history of sleep apnea. No history of hemoptysis or pleuritic chest pain. No history of pulmonary embolism. No symptoms of upper or lower respiratory tract infection. CARDIAC: History of hypertension present patient states that is well controlled. No history of coronary artery disease, VT or anginal symptoms. No history of congestive heart failure. This is the first episode of syncope. There is no history of palpitations although the patient did have some fluttering in his chest. No history of PND orthopnea or leg edema. No history of congenital heart disease. GI: No history of GI bleed. No history of GERD. No history of peptic ulcer disease. No history of fatty food intolerance. No history of altered bowel movements. No history of jaundice. ENDOCRINE: No history of diabetes mellitus or thyroid disease. No history of polydipsia polyuria. No history of heat or cold intolerance. RENAL: No history of chronic kidney disease. No symptoms of enlarged prostate. No history of hematuria pyuria or dysuria. No history of recurrent urinary tract infections. METABOLIC: Denies gout. The patient is mildly obese. He denies any history of hyperlipidemia, but his LDL and triglycerides are borderline elevated. MUSCULOSKELETAL: No history of arthritis or collagen vascular disease. 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 No history of headaches migraines or seizures. No history of gait imbalance. PSYCHIATRIC: No history of anxiety or depression. No history of suicidal ideation or homicidal ideation. VASCULAR: No history of calf or buttock claudication. No history of DVT. HEMATOLOGICAL: No history of bleeding diathesis or clotting disorders. No history of blood dyscrasias. No history of anemia or hematological malignancy. PHYSICAL EXAMINATION: The patient is well-built and well-nourished. At present in no acute distress. He is well-groomed Selected Entries 02/14/19 02/14/19 07:36 19:24 Temperature 98.1 F 98.3 F Temperature Oral Axillary Source Pulse Rate 78 74 Respiratory 20 18 Rate Blood Pressure 142/81 H 137/83 H Blood Pressure 101 101 Mean BP Location Left Arm Right Arm BP Position Supine Sitting O2 Sat by Pulse 95 95 Oximetry Oxygen Delivery Room Air Room Air Method HEAD: Atraumatic, normocephalic. EYES: Pupils equal round and reactive to light, extraocular movements intact, sclera anicteric, conjunctiva are normal. ENT: TMs normal, nares patent, oropharynx clear without exudates. Moist mucous membranes. NECK: Normal range of motion, supple without lymphadenopathy or JVD. Carotids are equal there is no bruits. There is no thyromegaly. There is no accessory muscles of respiration in use. Trachea central LUNGS: Breath sounds clear to auscultation bilaterally and equal. No wheezes rales or rhonchi. On palpation there is no chest wall tenderness. HEART: S1-S2 is heard. S1 is of normal intensity. There is no S3 gallop. There is no S4 gallop. There is systolic murmur left sternal border and apex without radiation. There is no rub.. ABDOMEN: Soft, nontender, normoactive bowel sounds. There is no hepatosplenic megaly no guarding, no rebound. No masses appreciated. EXTREMITIES: Normal range of motion, no pitting or edema. No clubbing or cyanosis. Femorals are well felt. There is no femoral bruits. Leg pulses are well felt. There is no DVT or cellulitis. There is no calf tenderness NEUROLOGICAL: Cranial nerves II through XII grossly intact. Normal speech, normal gait. The patient is awake alert oriented x3 with no focal deficits. PSYCH: Normal mood, normal affect. The patient judgment and insight are intact SKIN: Warm, Dry, normal turgor, no rashes or lesions noted. There is no petechia or ecchymosis. Current Medications Generic Name Dose Route Start Last Admin Trade Name Freq PRN Reason Stop Dose Admin Acetaminophen 650 mg 02/13/19 21:15 02/14/19 10:42 Tylenol 325 Mg Tablet PO 03/15/19 21:14 650 mg Q4HP PRN Administration For headache, pain or fever Al Hydrox/Mg Hydrox/Simethicone 30 ml 02/13/19 21:07 Maalox Plus Susp 30 Udcup PO 03/15/19 21:06 Q6HP PRN HEARTBURN Amlodipine Besylate 5 mg 02/14/19 10:00 02/14/19 09:13 Norvasc 5 Mg Tablet PO 03/16/19 09:59 5 mg DAILY PURVI Administration Cetirizine HCl 10 mg 02/14/19 13:00 02/14/19 14:39 Zyrtec 10 Mg Tablet PO 03/16/19 12:59 10 mg DAILY PURVI Administration Cholecalciferol 2,000 unit 02/15/19 10:00 Vitamin D3 1000 Unit Tablet PO 03/17/19 09:59 DAILY PURVI Docusate Sodium 100 mg 02/14/19 10:00 02/14/19 17:07 Colace 100 Mg Capsule PO 03/16/19 09:59 Not Given BID PURVI Famotidine 20 mg 02/13/19 22:00 02/14/19 21:37 Pepcid 20 Mg Tablet PO 03/15/19 21:59 20 mg Q12 PURVI Administration Fluticasone Propionate 2 spray 02/14/19 14:00 02/14/19 14:39 Flonase Nasal Hew[place] 50 Mcg/Hewitt 16 Gm NASL 03/16/19 13:59 2 spr DAILY PURVI Administration Furosemide 40 mg 02/14/19 10:00 02/14/19 09:14 Lasix 40 Mg Tablet PO 03/16/19 09:59 40 mg DAILY PURVI Administration Heparin Sodium (Porcine) 5,000 unit 02/13/19 22:00 02/14/19 21:34 Heparin Inj 5,000 Units/Ml 1 Ml Syringe SUBCUT 03/15/19 21:59 Not Given Q8 PURVI Magnesium Hydroxide 30 ml 02/13/19 21:07 Milk Of Magnesia 30 Ml Udcup PO 03/15/19 21:06 HSP PRN FOR CONSTIPATION Multivitamins 1 tab 02/14/19 13:00 02/14/19 14:38 Tab-A-Angus (Multiple Vitamin) Tablet PO 03/16/19 12:59 1 tab DAILY PURVI Administration Nalbuphine HCl 10 mg 02/13/19 21:15 Nubain Inj 10 Mg/1 Ml Ampule IV 02/20/19 21:14 Q3HP PRN FOR PAIN Ondansetron HCl 4 mg 02/13/19 21:07 Zofran Inj/Pf 4 Mg/2 Ml Sdv IV 03/15/19 21:06 Q4HP PRN FOR NAUSEA/VOMITING Patient Own Medication 50 mcg 02/14/19 10:00 Fluticasone Furoate [Arnuity Ellipta] NASL 03/16/19 09:59 DAILY PURVI Ramipril 10 mg 02/14/19 10:00 02/14/19 09:14 Altace 10 Mg Capsule PO 03/16/19 09:59 10 mg DAILY PURVI Administration Sodium Chloride 2.5 ml 02/13/19 22:00 02/14/19 21:38 Saline Flush 2.5 Ml Monoject Prefil Syrin IV 03/15/19 21:59 2.5 ml Q8 PURVI Administration Temazepam 15 mg 02/13/19 21:07 Restoril 15 Mg Capsule PO 02/20/19 21:06 HSP PRN SLEEP OR INSOMNIA Discontinued Medications Generic Name Dose Route Start Last Admin Trade Name Freq PRN Reason Stop Dose Admin Diphtheria/Tetanus/Acell Pertussis 0.5 ml 02/13/19 17:35 02/13/19 17:59 Boostrix Vaccine 0.5 Ml Syringe IM 02/13/19 17:36 0.5 ml NOW ONE Administration Lidocaine/Epinephrine 20 ml 02/13/19 18:44 02/13/19 18:47 Xylocaine 1%/Epi 1:100,000 Inj 20 Ml Vial INJ 02/13/19 18:45 20 ml NOW ONE Administration HOME MEDICATIONS: Amlodipine Besylate [Norvasc 5 mg Tablet] 5 mg PO DAILY 02/13/19 Furosemide [Lasix 40 mg Tablet] 40 mg PO DAILY 02/13/19 Ramipril [Altace 10 mg Capsule] 10 mg PO DAILY 02/13/19 Cetirizine HCl [Zyrtec] 10 mg PO DAILY 02/14/19 Ergocalciferol (Vitamin D2) [Vitamin D2] 2,000 unit PO DAILY 02/14/19 Fluticasone Propionate [Flonase Nasal Hewitt 50 Mcg/Hewitt 16 gm] 2 sprays NASL DAILY 02/14/19 Multivitamin [One-A-Day Essential] 1 each PO DAILY 02/14/19 Labs- Entire Visit 02/13/19 02/13/19 02/13/19 17:48 17:48 17:48 WBC 8.2 RBC 5.06 Hgb 15.2 Hct 43.8 MCV 86 MCH 30.0 MCHC 34.7 RDW 13.7 Plt Count 320 Seg Neutrophils % 75.2 Lymphocytes % 16.8 Monocytes % 6.1 Eosinophils % 1.3 Basophils % 0.6 Absolute Neutrophils 6.1 Absolute Lymphocytes 1.4 Absolute Monocytes 0.5 Absolute Eosinophils 0.1 Absolute Basophils 0.0 Sodium 140.0 Potassium 4.3 Chloride 100 Carbon Dioxide 29 Anion Gap 11 BUN 20 Creatinine 0.87 Est GFR ( Amer) > 60 Est GFR (Non-Af Amer) > 60 Glucose 112 H Hemoglobin A1c % Calcium 10.2 Magnesium Total Bilirubin 1.2 Direct Bilirubin 0.3 Neonat Total Bilirubin Not Reportable Neonat Direct Bilirubin Not Reportable Neonat Indirect Bili Not Reportable AST 47 ALT 76 H Alkaline Phosphatase 88 Creatine Kinase 83 CK-MB (CK-2) 0.61 Troponin I < 0.012 NT-Pro-B Natriuret Pep Total Protein 8.4 H Albumin 4.9 Triglycerides Cholesterol LDL Cholesterol Direct VLDL Cholesterol HDL Cholesterol TSH Free T4 Free T3 pg/mL Urine Color Urine Appearance Urine pH Ur Specific [place] Urine Protein Urine Glucose (UA) Urine Ketones Urine Blood Urine Nitrite Urine Bilirubin Urine Urobilinogen Ur Leukocyte Esterase Urine RBC (Auto) Squamous Epi Cells Auto Urine Mucus (Auto) Urine Ascorbic Acid Urine Opiates Screen Urine Methadone Screen Ur Barbiturates Screen Ur Phencyclidine Scrn Ur Amphetamines Screen U Benzodiazepines Scrn Urine Cocaine Screen U Marijuana (THC) Screen 02/13/19 02/13/19 02/13/19 17:48 17:48 17:48 WBC RBC Hgb Hct MCV MCH MCHC RDW Plt Count Seg Neutrophils % Lymphocytes % Monocytes % Eosinophils % Basophils % Absolute Neutrophils Absolute Lymphocytes Absolute Monocytes Absolute Eosinophils Absolute Basophils Sodium Potassium Chloride Carbon Dioxide Anion Gap BUN Creatinine Est GFR ( Amer) Est GFR (Non-Af Amer) Glucose Hemoglobin A1c % Calcium Magnesium 2.1 Total Bilirubin Direct Bilirubin Neonat Total Bilirubin Neonat Direct Bilirubin Neonat Indirect Bili AST ALT Alkaline Phosphatase Creatine Kinase CK-MB (CK-2) Troponin I NT-Pro-B Natriuret Pep Total Protein Albumin Triglycerides Cholesterol LDL Cholesterol Direct VLDL Cholesterol HDL Cholesterol TSH 3.88 Free T4 1.10 Free T3 pg/mL 5.15 Urine Color YELLOW Urine Appearance CLEAR Urine pH 6.0 Ur Specific [place] 1.017 Urine Protein NEGATIVE Urine Glucose (UA) NEGATIVE Urine Ketones 20 H Urine Blood NEGATIVE Urine Nitrite NEGATIVE Urine Bilirubin NEGATIVE Urine Urobilinogen NEGATIVE Ur Leukocyte Esterase NEGATIVE Urine RBC (Auto) 4 Squamous Epi Cells Auto <1 Urine Mucus (Auto) RARE Urine Ascorbic Acid 40 H Urine Opiates Screen Urine Methadone Screen Ur Barbiturates Screen Ur Phencyclidine Scrn Ur Amphetamines Screen U Benzodiazepines Scrn Urine Cocaine Screen U Marijuana (THC) Screen 02/13/19 02/13/19 02/14/19 22:20 22:20 03:52 WBC RBC Hgb Hct MCV MCH MCHC RDW Plt Count Seg Neutrophils % Lymphocytes % Monocytes % Eosinophils % Basophils % Absolute Neutrophils Absolute Lymphocytes Absolute Monocytes Absolute Eosinophils Absolute Basophils Sodium Potassium Chloride Carbon Dioxide Anion Gap BUN Creatinine Est GFR ( Amer) Est GFR (Non-Af Amer) Glucose Hemoglobin A1c % Calcium Magnesium Total Bilirubin Direct Bilirubin Neonat Total Bilirubin Neonat Direct Bilirubin Neonat Indirect Bili AST ALT Alkaline Phosphatase Creatine Kinase 78 CK-MB (CK-2) 0.50 Troponin I 0.013 NT-Pro-B Natriuret Pep Total Protein Albumin Triglycerides Cholesterol LDL Cholesterol Direct VLDL Cholesterol HDL Cholesterol TSH Free T4 Free T3 pg/mL Urine Color YELLOW Urine Appearance CLEAR Urine pH 7.0 Ur Specific [place] 1.013 Urine Protein NEGATIVE Urine Glucose (UA) 150 H Urine Ketones TRACE H Urine Blood NEGATIVE Urine Nitrite NEGATIVE Urine Bilirubin NEGATIVE Urine Urobilinogen NEGATIVE Ur Leukocyte Esterase NEGATIVE Urine RBC (Auto) 3 Squamous Epi Cells Auto Urine Mucus (Auto) Urine Ascorbic Acid 20 H Urine Opiates Screen Urine Methadone Screen Ur Barbiturates Screen Ur Phencyclidine Scrn Ur Amphetamines Screen U Benzodiazepines Scrn Urine Cocaine Screen U Marijuana (THC) Screen 02/14/19 02/14/19 02/14/19 03:52 04:28 04:28 WBC RBC Hgb Hct MCV MCH MCHC RDW Plt Count Seg Neutrophils % Lymphocytes % Monocytes % Eosinophils % Basophils % Absolute Neutrophils Absolute Lymphocytes Absolute Monocytes Absolute Eosinophils Absolute Basophils Sodium Potassium Chloride Carbon Dioxide Anion Gap BUN Creatinine Est GFR ( Amer) Est GFR (Non-Af Amer) Glucose Hemoglobin A1c % Calcium Magnesium Total Bilirubin Direct Bilirubin Neonat Total Bilirubin Neonat Direct Bilirubin Neonat Indirect Bili AST ALT Alkaline Phosphatase Creatine Kinase 99 CK-MB (CK-2) 0.52 Troponin I < 0.012 NT-Pro-B Natriuret Pep Total Protein Albumin Triglycerides Cholesterol LDL Cholesterol Direct VLDL Cholesterol HDL Cholesterol TSH Free T4 Free T3 pg/mL Urine Color Urine Appearance Urine pH Ur Specific [place] Urine Protein Urine Glucose (UA) Urine Ketones Urine Blood Urine Nitrite Urine Bilirubin Urine Urobilinogen Ur Leukocyte Esterase Urine RBC (Auto) Squamous Epi Cells Auto Urine Mucus (Auto) Urine Ascorbic Acid Urine Opiates Screen NEGATIVE Urine Methadone Screen NEGATIVE Ur Barbiturates Screen NEGATIVE Ur Phencyclidine Scrn NEGATIVE Ur Amphetamines Screen NEGATIVE U Benzodiazepines Scrn NEGATIVE Urine Cocaine Screen NEGATIVE U Marijuana (THC) Screen NEGATIVE 02/14/19 02/14/19 02/14/19 04:28 04:28 04:28 WBC 8.5 RBC 4.61 Hgb 14.1 Hct 39.5 MCV 86 MCH 30.5 MCHC 35.6 RDW 13.5 Plt Count 306 Seg Neutrophils % Lymphocytes % Monocytes % Eosinophils % Basophils % Absolute Neutrophils Absolute Lymphocytes Absolute Monocytes Absolute Eosinophils Absolute Basophils Sodium 138.3 Potassium 4.5 Chloride 103 Carbon Dioxide 25 Anion Gap 10 BUN 18 Creatinine 0.77 Est GFR ( Amer) > 60 Est GFR (Non-Af Amer) > 60 Glucose 84 Hemoglobin A1c % 5.5 Calcium 10.0 Magnesium 2.3 Total Bilirubin Direct Bilirubin Neonat Total Bilirubin Neonat Direct Bilirubin Neonat Indirect Bili AST ALT Alkaline Phosphatase Creatine Kinase CK-MB (CK-2) Troponin I NT-Pro-B Natriuret Pep Total Protein Albumin Triglycerides 172 H Cholesterol 166.42 LDL Cholesterol Direct 102 H VLDL Cholesterol 34.4 H HDL Cholesterol 42 TSH Free T4 Free T3 pg/mL Urine Color Urine Appearance Urine pH Ur Specific [place] Urine Protein Urine Glucose (UA) Urine Ketones Urine Blood Urine Nitrite Urine Bilirubin Urine Urobilinogen Ur Leukocyte Esterase Urine RBC (Auto) Squamous Epi Cells Auto Urine Mucus (Auto) Urine Ascorbic Acid Urine Opiates Screen Urine Methadone Screen Ur Barbiturates Screen Ur Phencyclidine Scrn Ur Amphetamines Screen U Benzodiazepines Scrn Urine Cocaine Screen U Marijuana (THC) Screen 02/14/19 02/14/19 02/14/19 04:28 04:28 10:57 WBC RBC Hgb Hct MCV MCH MCHC RDW Plt Count Seg Neutrophils % Lymphocytes % Monocytes % Eosinophils % Basophils % Absolute Neutrophils Absolute Lymphocytes Absolute Monocytes Absolute Eosinophils Absolute Basophils Sodium Potassium Chloride Carbon Dioxide Anion Gap BUN Creatinine Est GFR ( Amer) Est GFR (Non-Af Amer) Glucose Hemoglobin A1c % Calcium Magnesium Total Bilirubin Direct Bilirubin Neonat Total Bilirubin Neonat Direct Bilirubin Neonat Indirect Bili AST ALT Alkaline Phosphatase Creatine Kinase 114 CK-MB (CK-2) Troponin I NT-Pro-B Natriuret Pep 27 Total Protein Albumin Triglycerides Cholesterol LDL Cholesterol Direct VLDL Cholesterol HDL Cholesterol TSH 2.18 Free T4 1.01 Free T3 pg/mL 3.74 Urine Color Urine Appearance Urine pH Ur Specific [place] Urine Protein Urine Glucose (UA) Urine Ketones Urine Blood Urine Nitrite Urine Bilirubin Urine Urobilinogen Ur Leukocyte Esterase Urine RBC (Auto) Squamous Epi Cells Auto Urine Mucus (Auto) Urine Ascorbic Acid Urine Opiates Screen Urine Methadone Screen Ur Barbiturates Screen Ur Phencyclidine Scrn Ur Amphetamines Screen U Benzodiazepines Scrn Urine Cocaine Screen U Marijuana (THC) Screen 02/14/19 10:57 WBC RBC Hgb Hct MCV MCH MCHC RDW Plt Count Seg Neutrophils % Lymphocytes % Monocytes % Eosinophils % Basophils % Absolute Neutrophils Absolute Lymphocytes Absolute Monocytes Absolute Eosinophils Absolute Basophils Sodium Potassium Chloride Carbon Dioxide Anion Gap BUN Creatinine Est GFR ( Amer) Est GFR (Non-Af Amer) Glucose Hemoglobin A1c % Calcium Magnesium Total Bilirubin Direct Bilirubin Neonat Total Bilirubin Neonat Direct Bilirubin Neonat Indirect Bili AST ALT Alkaline Phosphatase Creatine Kinase CK-MB (CK-2) 0.42 Troponin I < 0.012 NT-Pro-B Natriuret Pep Total Protein Albumin Triglycerides Cholesterol LDL Cholesterol Direct VLDL Cholesterol HDL Cholesterol TSH Free T4 Free T3 pg/mL Urine Color Urine Appearance Urine pH Ur Specific [place] Urine Protein Urine Glucose (UA) Urine Ketones Urine Blood Urine Nitrite Urine Bilirubin Urine Urobilinogen Ur Leukocyte Esterase Urine RBC (Auto) Squamous Epi Cells Auto Urine Mucus (Auto) Urine Ascorbic Acid Urine Opiates Screen Urine Methadone Screen Ur Barbiturates Screen Ur Phencyclidine Scrn Ur Amphetamines Screen U Benzodiazepines Scrn Urine Cocaine Screen U Marijuana (THC) Screen Brain MRI with MRA 02/13/19 00:00 IMPRESSION: Unremarkable MRA brain copyright 2010 [employer]- All Rights Reserved Head MRI 02/13/19 00:00 IMPRESSION: Negative for acute intracranial abnormality. Right maxillary sinusitis copyright 2010 [employer]- All Rights Reserved Head CT 02/13/19 17:27 IMPRESSION: 1. No acute intracranial pathology. 2. Small air-fluid level in the right maxillary sinus. Correlate for evidence of acute trauma or alternately sinusitis. EVIDENCE OF ACUTE STROKE: NO. Chest X-Ray 02/13/19 18:16 IMPRESSION: Cardiomegaly without acute abnormality of the lungs. EKG: The first EKG shows baseline artifact, probably normal EKG. Patient is EKG done today is within normal limits. The patient's echocardiogram is within normal limits, with trace MR and TR and MN. Unable to calculate right ventricle systolic pressure due to lack of TR je t. There is no aortic stenosis, LVOT obstruction, or aortic regurgitation. There is no pericardial effusion. IMPRESSION/RECOMMENDATION: 1. SYNCOPE:? Etiology. Need to assess for tachycardic or bradycardic arrhythmia. So far there is no evidence of any acute ischemia on the EKG, and there is no arrhythmias seen on the monitor. The patient's QTc is within reasonable limits on the patient EKG. Would continue to observe the patient. Would recommend getting a exercise treadmill Cardiolite stress test tomorrow. Also the patient would be recommended to have a 30-day event monitor as an outpatient. The patient may benefit from a EP cardiology consultation. The patient has been counseled not to drive until the etiology of the syncope is determined. Doubt neurogenic etiology of the syncope. 2. Hypertension well controlled continue amlodipine and SAMMI inhibitor. 3. Dyslipidemia: Minimally elevated LDL and triglycerides level would recommend podiatry consult for a low felt low-salt low-cholesterol/cardiac diet. Medications reviewed. Discussed with the attending physician the management plan. Discussed with the patient also. The findings of the echo and EKGs and lab tests were discussed with the patient in detail. We will schedule the patient for exercise Cardiolite stress test in a.m. Note 60 minutes spent on this patient more than 50% of time spent in direct patient care. Medical decision making is of high complexity. Will follow.
--- NOTE | 2019-02-14 22:44 | EKG REPORT ---
SEVERITY:- NORMAL ECG - SINUS RHYTHM : Confirmed by: Felix Cornelius 14-Feb-2019 22:44:20
[2019-02-15 06:07] LABS: HEMATOCRIT 40.3 % (37.9-51.0); HEMOGLOBIN 14.2 g/dL (13.5-17.0); MEAN CORPUSCULAR HEMOGLOBIN 30.3 pg (27.0-33.4); MEAN CORPUSCULAR HGB CONC 35.1 g/dL (32.0-36.0); MEAN CORPUSCULAR VOLUME 86 fl (80-97); PLATELET COUNT 295 10^3/uL (150-450); RED BLOOD COUNT 4.68 10^6/uL (4.35-5.55); RED CELL DISTRIBUTION WIDTH 13.4 % (11.5-14.0); WHITE BLOOD COUNT 7.1 10^3/uL (4.0-10.5)
[2019-02-15] MEDS: HEPARIN SOD (PORCINE) 5,000 UNIT/ML 1 ML SYRINGE SUBCUT SCH ×2 (06:19→13:42)
[2019-02-15 07:00] LABS: ANION GAP 10 (5-19); BLOOD UREA NITROGEN 16 mg/dL (7-20); CALCIUM 9.5 mg/dL (8.4-10.2); CARBON DIOXIDE 25 mmol/L (22-30); CHLORIDE 104 mmol/L (98-107); GLUCOSE 101 mg/dL (75-110); SODIUM 138.5 mmol/L (137-145)
[2019-02-15] MEDS: AMLODIPINE BESYLATE 5 MG TABLET PO SCH (09:47)
[2019-02-15] MEDS: FUROSEMIDE 40 MG TABLET PO SCH (09:47)
[2019-02-15] MEDS: MULTIVITAMIN TABLET PO SCH (09:47)
[2019-02-15] MEDS: RAMIPRIL 10 MG CAPSULE PO SCH (09:48)
[2019-02-15] MEDS: FAMOTIDINE 20 MG TABLET PO SCH (09:48)
[2019-02-15] MEDS: FLUTICASONE NASAL SPRAY 50 MCG/SPRY 120 SPRAY/16 GM NASL SCH (09:49)
[2019-02-15] MEDS: CETIRIZINE 10 MG TABLET PO SCH (09:49)
[2019-02-15] MEDS: DOCUSATE SODIUM 100 MG CAPSULE PO SCH (09:49)
[2019-02-15] MEDS ORDERED: CHOLECALCIFEROL (D3) 1,000 UNIT TABLET PO SCH (10:00)
[2019-02-15] MEDS ORDERED: METOPROLOL SUCCINATE 25 MG TAB.SR.24H PO SCH (15:00)
[2019-02-15 16:41] VITALS: BP 143/88
--- NOTE | 2019-02-15 22:58 | Progress Note ---
Provider Note Provider Note: CARDIOLOGY PROGRESS NOTE by Dr. Trice Ivey on 02/15/2019. subjective: The patient has had no further syncopal episodes. The patient denies any chest pain or discomfort. There is no PND or orthopnea. There is no shortness of breath. There is no arrhythmia seen on the monitor. There is no TIA CVA symptoms. There is no leg edema. The patient underwent an uneventful excellent exercise treadmill stress Cardiolite stress test today. Findings as below. PHYSICAL EXAMINATION: The patient is well-built and well-nourished. At present in no acute distress. He is well-groomed. Selected Entries 02/15/19 15:45 Temperature 98.0 F Temperature Oral Source Pulse Rate 78 Respiratory 18 Rate Blood Pressure 143/88 H Blood Pressure 106 Mean BP Location Right Arm BP Position Sitting O2 Sat by Pulse 100 Oximetry Oxygen Delivery Room Air Method HEAD: Atraumatic, normocephalic. EYES: Pupils equal round and reactive to light, extraocular movements intact, sclera anicteric, conjunctiva are normal. ENT: TMs normal, nares patent, oropharynx clear without exudates. Moist mucous membranes. NECK: Normal range of motion, supple without lymphadenopathy or JVD. Carotids are equal there is no bruits. There is no thyromegaly. There is no accessory muscles of respiration in use. Trachea central LUNGS: Breath sounds clear to auscultation bilaterally and equal. No wheezes rales or rhonchi. On palpation there is no chest wall tenderness. HEART: S1-S2 is heard. S1 is of n ormal intensity. There is no S3 gallop. There is no S4 gallop. There is systolic murmur left sternal border and apex without radiation. There is no rub.. ABDOMEN: Soft, nontender, normoactive bowel sounds. There is no hepatosplenic megaly no guarding, no rebound. No masses appreciated. EXTREMITIES: Normal range of motion, no pitting or edema. No clubbing or cyanosis. Femorals are well felt. There is no femoral bruits. Leg pulses are well felt. There is no DVT or cellulitis. There is no calf tenderness NEUROLOGICAL: Cranial nerves II through XII grossly intact. Normal speech, normal gait. The patient is awake alert oriented x3 with no focal deficits. PSYCH: Normal mood, normal affect. The patient judgment and insight are intact SKIN: Warm, Dry, normal turgor, no rashes or lesions noted. There is no petechia or ecchymosis. 02/14/19 02/15/19 02/15/19 10:57 04:39 04:39 WBC 7.1 RBC 4.68 Hgb 14.2 Hct 40.3 MCV 86 MCH 30.3 MCHC 35.1 RDW 13.4 Plt Count 295 Sodium 138.5 Potassium 4.0 Chloride 104 Carbon Dioxide 25 Anion Gap 10 BUN 16 Creatinine 0.77 Est GFR (Non-Af Amer) > 60 Glucose 101 Calcium 9.5 Magnesium 2.1 CK-MB (CK-2) 0.42 Troponin I < 0.012 The patient exercised on a standard [place] protocol on the treadmill for 9 minutes. He achieved a heart rate of 148 bpm which is 88% of maximum predicted heart rate for age. The patient had no chest pain or discomfort. There was no arrhythmias seen. There is no EKG changes of ischemia induced by exercise. His nuclear perfusion imaging was normal, without any evidence of ischemia or myocardial infarction o/ scar. IMPRESSION/RECOMMENDATION: 1. SYNCOPE:? Etiology. Need to assess for tachycardic or bradycardic arrhythmia. So far there is no evidence of any acute ischemia on the EKG, and there is no arrhythmias seen on the monitor. The patient's QTc is within reasonable limits on the patient EKG. the patient's exercise treadmill Cardiolite stress test at a good exercise level was negative for any ischemia or prior myocardial infarction/scar. Recommend a 30-day event monitor as an outpatient. Add a beta-camila. Continue patient on aspirin and his current antihypertensives. The patient had been discussed with the EP x ray developing machine operator in [place]. The patient's contact numbers have been given to the EP x ray developing machine operator Dr. Ash Laboy. The patient would clearly require an EP study. The patient has been counseled not to drive until seen by the EP and the etiology of the syncope has been determined. 2. Hypertension well controlled continue amlodipine and SAMMI inhibitor. Add a beta-camila. 3. Dyslipidemia: Minimally elevated LDL and triglycerides level would recommend would recommend strict low-cholesterol low-fat diet, for now. Later would recheck the patient's lipid levels and to see if the patient needs to be on a statin. Medications reviewed. Discussed with the attending physician the management plan. Discussed with the patient also. All above findings including the stress test findings and the echo findings, EKGs and lab tests were discussed with the patient in detail. Note 60 minutes spent on this patient more than 50% of time spent in direct patient care. Medical decision making is of high complexity. The patient is asked to be sent home. We will discharge the patient the patient does have my cell phone number to contact me if he has any problems. We will arrange for the patient to get a 30-day event monitor sent to his home. Will make sure that the patient gets an early EP appointment with Dr. Ash Laboy. All of their were discussed with the also with the patient patient's permission.
--- NOTE | 2019-02-17 00:10 | DRAGON STRESS TEST REPORT ---
xercise EKG treadmill Cardiolite stress test using SPECT. Data procedure: 02/15/2019. Ordering Provider: Dr. Trice Chaudhari. Patient Status: Inpatient. Indication:: Syncope. Coronary risk factors: Age, and hypertension. Significant physical findings prior to stress testing show a blood pressure of 140/85, and a heart rate of 70 beats per minute, with no ectopics.. Auscultation of the heart shows normal S1 and S2. No S3 or S4 gallops. Systolic murmur in the left sternal border and apex. Lungs are clear to auscultation and percussion. Resting 12-lead EKG:.Sinus Rhythm. Within Normal Limits Procedure: The patient was excised on a standard [place] protocol. . The patient walked a total of 9 minutes and 03 seconds on this protocol and reached a peak heart rate of 148 beats per minute, which is 88% of maximum predicted heart rate for age. This is at a workload of 10.10 METS. The test was stopped because of achievement of target heart rate. The patient described no symptoms of chest pain/discomfort ] Exercise EKG's show: There is no EKG evidence of exercise-induced ischemia. Arrhythmias seen: None. The blood pressure response was normal at peak exercise the blood pressure was 175/73 millimeters of Hg. The double product was 25.9 K. Summary of findings and interpretation: 1. No chest pain or chest discomfort symptoms reproduced. 2. [No] EKG evidence of ischemia in the form of ST segment depression. 3. Normal blood pressure response. 4. [No] arrhythmias seen. 5. [Good] exercise tolerance, [good] aerobic capacity. Diagnostic treadmill stress test negative for ischemia by EKG criteria. Recommendations: Correlate with nuclear Cardiolite images. Nuclear data: At rest the patient was given 14.35 millicuries of technetium 99 sestamibi, and as per protocol rest none gated SPECT images were obtained. The patient was exercised on a treadmill [see exercise physiology]. One minute prior to termination of exercise, 43.2 millicuries of technetium and there sestamibi was injected intravenously. As per protocol stress gated images were obtained. Impression: Review of images show that there is contamination artifact. In spite of this all segments of the myocardium had normal perfusion at rest, and normal perfusion post exercise. All segments of the myocardium had normal motion, contraction, and thickening by gated study. T. I D. ratio was 0.94. The computer read rest and stress left ventricular ejection fractions were 58 %, and 56 % respectively. 1. No clinical symptoms of exercise-induced myocardial ischemia at a peak heart rate of 148 beats per minute, patient having achieved 88 % of maximum predicted heart rate for age, at a workload of of 10.10 METS. 2. No EKG evidence of exercise-induced myocardial ischemia. 3. No arrhythmias seen. 4. Normal blood pressure response to exercise. 5. No scintigraphic evidence of exercise-induced myocardial ischemia. 6. No scintigraphic evidence of myocardial infarction/scar. Recommendations Aggressive coronary risk factor modification, and treatment of underlying comorbidities. Strongly recommend EP stone layer consultation for possible EP studies to see if there is arrhythmogenic cause of the patient's syncope. PRISCILA
--- NOTE | 2019-02-25 12:42 | PDOC DISCHARGE SUMMARY ---
General - Admit/Disc Date/PCP Admission Date/Primary Care Provider: 02/13/19 20:24 AL[facility] DELIA TERRELL Discharge Date: 02/15/19 - Discharge Diagnosis (1) Syncope Is this a current diagnosis for this admission?: Yes (2) Cardiomegaly Is this a current diagnosis for this admission?: Yes (3) HTN (hypertension) Is this a current diagnosis for this admission?: Yes - Additional Information Resuscitation Status: Full Code Discharge Diet: As Tolerated Discharge Activity: Activity As Tolerated Prescriptions: Metoprolol Succinate [Toprol Xl 25 mg Tab.sr] 12.5 mg PO Q12 #60 tab.sr.24h Home Medications: Amlodipine Besylate [Norvasc 5 mg Tablet] 5 mg PO DAILY 02/13/19 Furosemide [Lasix 40 mg Tablet] 40 mg PO DAILY 02/13/19 Ramipril [Altace 10 mg Capsule] 10 mg PO DAILY 02/13/19 Cetirizine HCl [Zyrtec] 10 mg PO DAILY 02/14/19 Ergocalciferol (Vitamin D2) [Vitamin D2] 2,000 unit PO DAILY 02/14/19 Fluticasone Propionate [Flonase Nasal Cades 50 Mcg/Cades 16 gm] 2 sprays NASL DAILY 02/14/19 Multivitamin [One-A-Day Essential] 1 each PO DAILY 02/14/19 Fluticasone Furoate [Arnuity Ellipta] 50 mcg NASL DAILY 02/15/19 Metoprolol Succinate [Toprol Xl 25 mg Tab.sr] 12.5 mg PO Q12 #60 tab.sr.24h 02/15/19 History of Present Illness History of Present Illness: GARRETT AGUIAR is a 53 year old male who presented to the emergency room with an acute episode of syncope. 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 He remembers the events just prior to the episode of unconsciousness and also remembers the events immediately following the period of unconsciousness when he woke up noticing blood on the floor in front of his face. He denies other accompanying signs or symptoms and rates his syncopal episode as severe. He admits that he had a single similar less severe prior episode approximately 2 weeks ago but did not have syncope at that time. He has not identified any aggravating or ameliorating factors for his syncopal episodes. In the emergency room he was found to have a right periorbital contusion with laceration which was repaired. His CAT scan was negative for intracranial injury or hemorrhage. His initial cardiac workup showed negative cardiac enzymes and an EKG which showed no evidence of cardiac ischemia or injury. He was subsequently admitted to the hospital for further evaluation and treatment. Hospital Course Hospital Course: 53 y.o. with a PMH of HTN presented to [facility] for syncope. Reportedly, he was seated at his desk when he lost consciousness. His head hit his desk, he sustained periorbital bruising. CT head normal. Brain MRI normal. ECHOcardiogram and Cardiolite Stress Test normal. Etiology of syncope unclear. Need to assess for tachycardic or bradycardic arrhythmia. There was no evidence of any acute ischemia on the EKG, and there were no arrhythmias seen on the monitor. The patient's QTc is within reasonable limits on EKG. The patient's exercise treadmill Cardiolite stress test at a good exercise level was negative for any ischemia or prior myocardial infarct ion/scar. Cardiology was consulted, recommend a 30-day event monitor as an outpatient, addition of a beta-camila for HR control. On hospital day #2, the patient was deemed safe for discharge. He was instructed to continue on aspirin and his current antihypertensives. He was sent home with a prescription for metoprolol, which he tolerated well while inpatient. The patient's case had been discussed with an EP rn sane in [place]. Provided contact information for outpatient followup. Physical Exam Vital Signs: Temp Pulse Resp BP Pulse Ox 97.8 F 80 18 137/80 H 97 02/15/19 15:59 02/15/19 15:59 02/15/19 15:59 02/15/19 15:59 02/15/19 15:59 Results Laboratory Results: 02/15/19 04:39 02/15/19 04:39 02/13/19 02/13/19 02/13/19 17:48 17:48 22:20 Creatine Kinase 83 78 CK-MB (CK-2) 0.61 Troponin I < 0.012 NT-Pro-B Natriuret Pep 02/13/19 02/14/19 02/14/19 22:20 04:28 04:28 Creatine Kinase 99 CK-MB (CK-2) 0.50 0.52 Troponin I 0.013 < 0.012 NT-Pro-B Natriuret Pep 02/14/19 02/14/19 02/14/19 04:28 10:57 10:57 Creatine Kinase 114 CK-MB (CK-2) 0.42 Troponin I < 0.012 NT-Pro-B Natriuret Pep 27 Impressions: Brain MRI with MRA 02/13/19 00:00 IMPRESSION: Unremarkable MRA brain copyright 2010 [employer]- All Rights Reserved Head MRI 02/13/19 00:00 IMPRESSION: Negative for acute intracranial abnormality. Right maxillary sinusitis copyright 2010 [employer]- All Rights Reserved Head CT 02/13/19 17:27 IMPRESSION: 1. No acute intracranial pathology. 2. Small air-fluid level in the right maxillary sinus. Correlate for evidence of acute trauma or alternately sinusitis. EVIDENCE OF ACUTE STROKE: NO. Chest X-Ray 02/13/19 18:16 IMPRESSION: Cardiomegaly without acute abnormality of the lungs. Qualifiers - * PATIENT BEING DISCHARGED WITH ANY OF THE FOLLOWING DIAGNOSIS: No
== END 2019-02-15 16:50 | disposition home or self-care (01) | DRG 312 ==
LOC: ER 17:00 → EH 20:24 → 3N 22:41
PROVIDERS: ADMIT Emergency Medicine; ATTEND Emergency Medicine
PROC: 0HQ1XZZ Repair Face Skin, External Approach (ICD-10-PCS; principal; 2019-02-13)
DX: R55 Syncope and collapse (principal); S01.81XA Laceration without foreign body of other part of head, initial encounter; W07.XXXA Fall from chair, initial encounter; Y92.219 Unspecified school as the place of occurrence of the external cause; I51.7 Cardiomegaly; I10 Essential (primary) hypertension; Z82.49 Family history of ischemic heart disease and other diseases of the circulatory system; E66.9 Obesity, unspecified; E78.5 Hyperlipidemia, unspecified; Z79.899 Other long term (current) drug therapy; Z79.82 Long term (current) use of aspirin
CPT/HCPCS: 36415; 70450; 70544; 70551; 71046; 78452; 80048; 80053; 80061; 80307; 81001; 82550; 82553; 83036; 83735; 83880; 84439; 84443; 84481; 84484; 85025; 85027; 90471; 90715; 93005; 93010; 93017; 93306; 99285; A9500; G0378; J1644; J3490; Q9969